=== PATIENT | male | born 1985 | race Caucasian/White ===

== ENCOUNTER 2016-07-15 00:17 | Emergency (ER) | payer OTHER ==
[~2016-07-15] VITALS: Ht 177.8 cm; Wt 68.0 kg
[2016-07-15 00:17] VITALS: BP 143/89; PULSE 116; RESP 18; TEMP 97.8; O2SAT 100
[2016-07-15 00:33] VITALS: BP 143/89; PULSE 116; RESP 18; TEMP 97.8; O2SAT 100
== END 2016-07-15 00:33 ==
LOC: SED 00:17
DX: Z02.89 Encounter for other administrative examinations (principal)